=== PATIENT | female | born 1955 | race Caucasian/White ===

== ENCOUNTER 2017-06-15 16:21 | Outpatient (CLI) | payer BC ==
[2017-06-15 17:43] LABS: Hematocrit 41.3 % (36.0-47.0); Mean Platelet Volume 7.6 fL (7.4-10.4); Red Blood Cell (RBC) Count 4.32 mill/uL (4.20-5.40); White Blood Cell (WBC) Count 6.7 thou/uL (4.8-10.8)
== END 2017-06-15 16:22 | disposition home or self-care (01) ==
LOC: LABBT 16:21
PROVIDERS: ATTEND Obstetrics & Gynecology
DX: Z01.812 Encounter for preprocedural laboratory examination (principal); R19.09 Other intra-abdominal and pelvic swelling, mass and lump
CPT/HCPCS: 85027; 86850; 86900; 86901; 93005; 93010

== ENCOUNTER 2017-06-16 05:57 | Day surgery (SDC) | payer BC ==
[2017-06-15 16:42] VITALS: BMI 25.6
--- NOTE | 2017-06-15 17:02 | HP ---
DATE OF ADMISSION: 06/16/2017 REASON FOR ADMISSION: Large simple right adnexal mass. SCHEDULED PROCEDURE: Laparoscopic right salpingo-oophorectomy. HISTORY OF PRESENT ILLNESS: Ms. Szymanski is a 61-year-old female, who was initially referred to me for difficulty of finding her cervix. On exam, I found that she had a cervix and uterus has deviated to the left, secondary to a large simple cyst. Pap smear was obtained, which was within normal limits. Cyst is simple with a CEA of 1.3 and a CA-125 was 7, making it very unlikely to be a malignancy. H owever, considering the patient's age and size of the mass, surgical management is required. SPA MANAGER HISTORY: No history of dysplasia or STDs, G0 secondary to endometriosis and scarring. PAST MEDICAL HISTORY: Hypertension, hyperlipidemia, insulin resistance. PAST SURGICAL HISTORY: Tonsillectomy and laparoscopy. MEDICATIONS: Trazodone, simvastatin, valsartan, metformin, pantoprazole. ALLERGIES: CECLOR, swelling. FAMILY HISTORY: Noncontributory for breast or ovarian malignancy. PHYSICAL EXAMINATION: GENERAL: White female, in no acute distress. VITAL SIGNS: Height 5 feet 2 inches, BMI 26, blood pressure 112/78. HEENT: Within normal limits. LUNGS: Clear to auscultation bilaterally. HEART: Regular rate and rhythm. BREASTS: No masses bilaterally. ABDOMEN: Soft and nontender, without rebound or guarding. PELVIC: Vulva without lesions. Vagina discharge. Cervix deviated to the left. Uterus deviated to the left and small. Bimanual reveals a fullness in the right adnexa that is nontender. EXTREMITIES: Without clubbing, cyanosis, or edema. LABORATORY STUDIES: CA-125 and CEA as reported. Basic metabolic panel is within normal limits with a creatinine of 0.9, potassium of 4.5 and a normal sodium and normal glucose. Ultrasound reveals an endometrial thickness of 5 mm. Right ovarian cyst measuring 11 x 9 x 8 cm with no free fluid and no excrescences noted. IMPRESSION: Large simple right ovarian cyst in a postmenopausal female. PLAN: Discussed with patient options. We will proceed with laparoscopic management. Anticipate a r ight salpingo-oophorectomy placement and a retrieval bag with drainage and retrieval of the mass to a void spillage intraabdominally. Patient understands small but still possible chance of LMP versus fr ank malignant tumor. We will administer appropriate antibiotic prophylaxis considering the patient's allergies.
[2017-06-16] MEDS ORDERED: Bupivacaine/Epinephrine 0.25% 30 ML VIAL ONE (06:29)
[2017-06-16] MEDS ORDERED: Levofloxacin 500 mg/D5W 100 ml Premix Bag ONE (06:45)
[2017-06-16] MEDS ORDERED: Clindamycin/D5W 900 mg/50 ml Premix Bag ONE (06:45)
[2017-06-16] MEDS ORDERED: Fentanyl 100 MCG/2 ML VIAL ONE ×2 (07:14→09:41)
[2017-06-16] MEDS ORDERED: Midazolam HCl 2 mg/2 ml Vial ONE (07:14)
[2017-06-16] MEDS ORDERED: SUGAMMADEX SODIUM 200 MG/2 ML VIAL ONE (09:16)
[2017-06-16] MEDS ORDERED: Promethazine HCl 25 MG/ML VIAL IM/IV PRN (09:52)
[2017-06-16] MEDS ORDERED: Ondansetron HCl/PF 4 MG/2 ML Vial IVP PRN (09:52)
[2017-06-16] MEDS ORDERED: Non-Formulary Medication 1 EACH PO PRN (09:52)
--- NOTE | 2017-06-16 11:07 | OP ---
DATE OF OPERATION: 06/16/2017 PREOPERATIVE DIAGNOSIS: A 10 centimeter right adnexal simple cyst. POSTOPERATIVE DIAGNOSIS: A 10 centimeter right adnexal simple cyst, probable serous cystadenoma. PROCEDURE: Laparoscopic right salpingo-oophorectomy with da Herve robot assist. SURGEON: Juan Johnson M.D. CONTENT ANALYST: Patience Martinez M.D. ANESTHESIA: General endotracheal. ESTIMATED BLOOD LOSS: Less than 10 mL. MEDICATIONS: Clindamycin and Levaquin preoperatively per protocol for penicillin allergic patients. DVT PROPHYLAXIS: SCDs. DRAINS: Sevilla to gravity, approximately 100 mL of clear urine. ESTIMATED BLOOD LOSS: EBL was 10 mL. OPERATIVE FINDINGS: 1. Normal appearing uterus. 2. A 10 cm simple right adnexal mass. 3. Normal appearing liver edge, gallbladder, appendix. 4. Normal appearing left tube and ovary without evidence of obvious abnormality or malignancy. DESCRIPTION OF OPERATIVE PROCEDURE: After obtaining proper informed consent, the patient was taken t o the operating room where general endotracheal anesthesia was achieved without difficulty. The marisol ent prepped and draped in dorsal lithotomy position in Madhav stirrups. Weighted speculum placed in v agina, cervix identified. The os was stenotic and decision was made just to place a sponge stick in the vagina. Sevilla catheter was placed. Clinical Education Specialist changed his gloves and turned his attention to the abdominal portion of the procedure. Five mL of Marcaine injected at the superior aspect of the umbil icus and a 12 mm skin incision made. Veress needle placed inside the abdominal cavity, insufflation carried out with carbon dioxide to a max pressure of 15, volume approximately 3.5 liters. A 12 mm tr ocar was placed and confirmation of entry into the peritoneal cavity without trauma to the underlying viscera was noted. Right and left lateral robot ports 8 mm were placed under direct visualization a nd a 15 mm port placed suprapubically in the midline 2 cm above the symphysis pubis. The patient was placed in steep Trendelenburg position and the da Herve robot docked with monopolar scissors in the right hand and bipolar fenestrated forceps in the left. Operative findings were noted. The right ad nexa was mobilized medially and the IP ligament identified and isolated, the ureter identified and no maria fernanda be well below the level of the IP ligament. The IP was coagulated and transected and this was ca rried through the broad, down to the level of the uteroovarian and the fallopian tube which was trans ected and excised, maintain the adnexal mass and fallopian tube in 1 piece without rupture of the cys t. A large retrieval sac was placed in the abdominal cavity after undocking the da Herve robot throu gh the 15 mm trocar and the specimen was placed into this. The retrieval sac was pulled through the trocar the trocar removed. Under direct visualization the cyst was ruptured with the sac extraperito geeta and the fluid suctioned out of the cyst. This rendered the cyst and the ovary and the tube smal l enough that they just came out through the fascial defect from the 15 mm trocar. The abdomen was d esufflated of carbon dioxide. A trocar closure set with 0 Vicryl sutures was used to close the fasci a at the level of the 15 mm trocar. The abdomen was then desufflated of carbon dioxide, the other 3 trocars were removed. The fascia reapproximated at the umbilical trocar using a UR-5 0 Vicryl suture and the skin reapproximated x4 using 4-0 Monocryl subcuticular and Dermabond. Sponge stick removed from the vagina. Sevilla catheter removed. The patient was taken to the recovery room in good conditi on.
[2017-06-16] MEDS ORDERED: HYDROcodone/Acetaminophen 5/325 mg Tablet ONE (11:34)
[2017-06-16] MEDS ORDERED: Ketorolac Tromethamine 30 MG/ML VIAL ONE (15:21)
[2017-06-16] MEDS ORDERED: Glycopyrrolate 0.2 MG/ML 5 ML SYRINGE ONE (15:21)
[2017-06-16] MEDS ORDERED: Ondansetron HCl/PF 4 MG/2 ML Vial ONE (15:21)
[2017-06-16] MEDS ORDERED: Lidocaine 1% PF 5 ML VIAL ONE (15:21)
[2017-06-16] MEDS ORDERED: Propofol 200 MG/20 ML VIAL ONE (15:21)
== END 2017-06-16 12:33 | disposition home or self-care (01) ==
LOC: SDC 05:57
PROVIDERS: ATTEND Obstetrics & Gynecology
PROC: 0UT54ZZ Resection of Right Fallopian Tube, Percutaneous Endoscopic Approach (ICD-10-PCS; principal; 2017-06-16)
PROC: 0UT04ZZ Resection of Right Ovary, Percutaneous Endoscopic Approach (ICD-10-PCS; principal; 2017-06-16)
DX: D27.0 Benign neoplasm of right ovary (principal); I10 Essential (primary) hypertension; E78.5 Hyperlipidemia, unspecified; Z88.1 Allergy status to other antibiotic agents; Z79.899 Other long term (current) drug therapy; Z79.84 Long term (current) use of oral hypoglycemic drugs; Z98.890 Other specified postprocedural states
CPT/HCPCS: 88307; 96374; S2900; J0131; J1885; J1956; J2001; J2250; J2405; J2704; J3010; J3490

== ENCOUNTER 2017-12-23 13:40 | Outpatient (CLI) | payer OTHER | END 2017-12-23 13:41 | disposition home or self-care (01) | LOC: BICRAD 13:40 | PROVIDERS: ATTEND Chiropractor | DX: M54.42 Lumbago with sciatica, left side (principal); M54.6 Pain in thoracic spine; M46.96 Unspecified inflammatory spondylopathy, lumbar region; M47.894 Other spondylosis, thoracic region | CPT/HCPCS: 72070; 72100 ==

== ENCOUNTER 2018-05-23 14:37 | Outpatient (CLI) | payer BC ==
--- NOTE | 2018-05-23 16:52 | ULT ---
BILATERAL RENAL ULTRASOUND: HISTORY: Microhematuria. Chronic renal disease. FINDINGS: Each kidney measures 10.3 cm in length. No focal mass or hydronephrosis is seen on either side. Cor tical echogenicity and thickness are normal. The urinary bladder is grossly unremarkable with a pre- void volume of 226 mL and a post-void residual of 71 mL. IMPRESSION: Moderate amount of post void residual in the urinary bladder; otherwise, unremarkable examination. POS: [facility]
== END 2018-05-23 14:38 | disposition home or self-care (01) ==
LOC: BICULT 14:37
PROVIDERS: ATTEND Internal Medicine
DX: N18.3 Chronic kidney disease, stage 3 (moderate) (principal); N39.43 Post-void dribbling
CPT/HCPCS: 76770

== ENCOUNTER 2018-05-30 09:40 | Outpatient (CLI) | payer BC ==
--- NOTE | 2018-05-30 12:13 | MMO ---
BILATERAL SCREENING MAMMOGRAM: COMPARISON: Reference is made to a 03/18/2017 mammogram. FINDINGS: There is heterogeneously dense breast parenchyma bilaterally, limiting the sensitivity of mammography . A stable lymph node is seen at the upper outer deep right breast. There is no new dominant mass, suspicious clustering of microcalcification, or architectural distortion. The exam is interpreted with the assistance of CAD. Exam is grossly stable. IMPRESSION: BI-RADS 2-Benign findings. Annual screening mammography is recommended. POS: [facility]
== END 2018-05-30 09:41 | disposition home or self-care (01) ==
LOC: SCSMAMMO 09:40
PROVIDERS: ATTEND Internal Medicine
DX: Z12.31 Encounter for screening mammogram for malignant neoplasm of breast (principal)
CPT/HCPCS: 77067

== ENCOUNTER 2018-07-07 10:58 | Outpatient (CLI) | payer BC ==
--- NOTE | 2018-07-07 15:20 | CT ---
CT ABDOMEN AND PELVIS WITH AND WITHOUT IV CONTRAST: History: Microscopic hematuria. Urinary frequency. FINDINGS: Each renal collecting system, ureter, and urinary bladder are decompressed without stone apparent. No filling defects are apparent within the urinary system on the delayed images. Area of heterogenous enhancement along the lateral margin of the inferior spleen is of doubtful clini ina significance. There is calcification throughout the arterial structures. No enlarged lymph nodes or free fluid. Degenerative changes lumbar spine. IMPRESSION: 1. No urinary tract abnormalities are demonstrated. 2. Atherosclerosis. POS: [facility]
== END 2018-07-07 10:59 | disposition home or self-care (01) ==
LOC: BICCT 10:58
PROVIDERS: ATTEND Urology
DX: R31.29 Other microscopic hematuria (principal); I70.90 Unspecified atherosclerosis
CPT/HCPCS: 74178

== ENCOUNTER 2021-11-28 15:00 | Outpatient (CLI) | payer BC | END 2021-11-28 15:01 | disposition home or self-care (01) | LOC: BICRAD 15:00 | PROVIDERS: ATTEND Internal Medicine | DX: M47.26 Other spondylosis with radiculopathy, lumbar region (principal); M54.42 Lumbago with sciatica, left side | CPT/HCPCS: 72100 ==

== ENCOUNTER 2022-05-05 10:59 | Outpatient (CLI) | payer BC | END 2022-05-05 11:00 | disposition home or self-care (01) | LOC: BICMAMMO 10:59 | PROVIDERS: ATTEND Internal Medicine | DX: Z12.31 Encounter for screening mammogram for malignant neoplasm of breast (principal) | CPT/HCPCS: 77063; 77067 ==